=== PATIENT | female | born 1970 | race Caucasian/White ===

== ENCOUNTER → 2016-08-29 | Outpatient (CLI) | payer OTHER ==
--- NOTE | ~2016-08-29 | ECH ---
Transthoracic Echocardiography Report (TTE) Demographics Patient Name REJI MUNSON Date of Study 08/29/2016 MIRANDA Patient Number [id number] Visit Number [id number] Date of 1970 Room Number Accession Number [id number] Gender Female Age 45 year(s) Referring Harry Triplett [employer] Blower Karyna Quinones [facility] Physician Physician Maximino Thibodeaux MD Attending Pathologist Physician Fuad Supervising Ordering Physician Harry Triplett MD, MD/P Nurse Stress Barrel Filler Head Conclusions Contractility Score Summary Normal Left Ventricular contractility was noted. Summary Technically adequate exam. The estimated left ventricular ejection fraction is 60-65%. Mild left ventricular hypertrophy. No significant valvular abnormalities. Recommendation The patient will be given the results of this study by the physician who ordered the exam. Procedure Type of Study TTE procedure:Echo Complete SF. Procedure Date Date: 08/29/2016 Start: 09:09 AM Technical Quality: Adequate visualization Indications:Palpitations. Appropriate Use Criteria: 9 Height: 61 inches Weight: 218 pounds BSA: 1.96 m Rhythm: Within normal limits HR: 81 bpm BP: 106/59 mmHg M-Mode/2D Measurements LV Diastolic Dimension: 4.04 cm LV Systolic Dimension: 1.95 cm LV Septum Diastolic: 1.09 cm LV PW Diastolic: 1.24 cm AO Root Dimension: 2.39 cm Cardiac Output: 4.53 l/min LA Dimension: 3.18 cm Cardiac Index: 2.31 l/min*m RV Diastolic Dimension: 3.48 cm LA volume index: 23 ml/m LVOT: 1.95 cm LVOT VTI: 18.74 cm RV Base: 3 cm LV Stroke volume: 55.94 ml RV Mid: 2.3 cm LV Stroke volume index: 28.54 ml/m RV Length: 6.7 cm Doppler Measurements AV Peak Velocity: 1.47 m/s MV Peak E-Wave: 1.11 m/s AV Peak Gradient: 8.64 mmHg MV Peak A-Wave: 0.81 m/s AV Mean Gradient: 4.63 mmHg MV E/A Ratio: 1.38 LVOT Peak Velocity: 0.85 m/s MV P1/2t: 59.8 msec AV Area (Continuity):1.86 cm MV Deceleration Time: 206.4 msec TR Velocity:2.15 m/s MV Area (PHT): 3.68 cm TR Gradient:18.49 mmHg PV Peak Velocity: 0.97 m/s Estimated RAP:5 mmHg PV Peak Gradient: 3.73 mmHg Estimated RVSP: 23 mmHg Estimated PASP: 23.49 mmHg RA Area: 13.46 cm Findings Left Ventricle The left ventricle is normal in size . Mild left ventricular hypertrophy. Diastolic assessment reveals normal relaxation. Right Ventricle Normal right ventricle structure and function. Left Atrium Normal left atrial size. Right Atrium Normal right atrial size. Mitral Valve Normal mitral valve structure and function. Aortic Valve Normal aortic valve structure and function. Tricuspid Valve Normal appearing tricuspid valve. Trivial tricuspid regurgitation by color Doppler. Pulmonic Valve Normal pulmonic valve structure and function. Pericardial Effusion No evidence of pericardial effusion. Miscellaneous Visualized portions of the aortic root and ascending aorta appear normal in size. Pleural Effusion No evidence of pleural effusion. Contractility Score LV regional wall motion:(0-Non visualized 1-Normal 2-Hypokinesis 3-Akinesis 4-Dyskinesis 5-Aneurysm) Signature
== END | disposition home or self-care (01) ==
LOC: CARD 08:57
DX: R00.2 Palpitations (principal); I51.7 Cardiomegaly